=== PATIENT | male | born 1935 | race Caucasian/White ===

== ENCOUNTER 2017-09-14 10:39 | Outpatient (CLI) | payer MEDICARE | END 2017-09-14 10:40 | disposition home or self-care (01) | LOC: BICCT 10:39 | PROVIDERS: ATTEND Internal Medicine | DX: R91.8 Other nonspecific abnormal finding of lung field (principal); R91.1 Solitary pulmonary nodule | CPT/HCPCS: 71250 ==

== ENCOUNTER 2018-01-15 12:05 | Outpatient (CLI) | payer MEDICARE ==
--- NOTE | 2018-01-15 15:03 | PET ---
RADIONUCLIDE PET SCAN WITH CT ATTENUATION CORRECTION: HISTORY: Solitary pulmonary nodule superior segment right lower lobe. COMPARISON: CT chest dated 09/14/17. FINDINGS: Physiologic uptake of radiotracer is present throughout the enteric system and along each urinary tra ct. In the superior segment right lower lobe in region of subtle ground-glass nodule on the current n ondiagnostic CT attenuation correction images and the prior CT, maximum SUV is 0.7. No abnormal areas of hypermetabolic activity are apparent. 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 Nondiagnostic CT attenuat ion correction images show calcification within the arterial structures. Prominent degenerative osullivan es lumbar spine. Diverticula arise from the colon without adjacent inflammation. IMPRESSION: 1. No hypermetabolic activity visualized in region of small ground-glass nodule right lower lobe or elsewhere. Given the small size of the lesion, please consider continued periodic CT follow-up to [facility] for any enlargement. 2. Atherosclerosis. 3. Diverticulosis. No evidence of diverticulitis. 4. 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 POS: [facility]
== END 2018-01-15 12:06 | disposition home or self-care (01) ==
LOC: PET 12:05
PROVIDERS: ATTEND Internal Medicine
DX: R91.8 Other nonspecific abnormal finding of lung field (principal); R91.1 Solitary pulmonary nodule; K57.90 Diverticulosis of intestine, part unspecified, without perforation or abscess without bleeding; I70.90 Unspecified atherosclerosis
CPT/HCPCS: 78815; A9552

== ENCOUNTER 2022-01-18 09:28 | Outpatient (CLI) | payer MEDICARE | END 2022-01-18 09:29 | disposition home or self-care (01) | LOC: RAD 09:28 | PROVIDERS: ATTEND Internal Medicine Critical Care Medicine | DX: R06.09 Other forms of dyspnea (principal); R91.8 Other nonspecific abnormal finding of lung field | CPT/HCPCS: 71046 ==